=== PATIENT | female | born 1990 | race African-American/Black ===

== ENCOUNTER 2017-02-03 22:22 | Emergency (ER) | payer MEDICAID ==
[~2017-02-03] VITALS: Ht 167.6 cm; Wt 55.9 kg
[2017-02-03 22:24] VITALS: BP 108/70
[2017-02-03 23:52] LABS: HCG UR OBC PASS
== END 2017-02-04 00:29 | disposition home or self-care (01) ==
LOC: ED 23:59
DX: N76.0 Acute vaginitis (principal); H00.011 Hordeolum externum right upper eyelid
CPT/HCPCS: 81003; 81025; 87210; 87491; 87591; 87808; 99284

== ENCOUNTER 2018-05-26 01:57 | Emergency (ER) | payer MEDICAID ==
[~2018-05-26] VITALS: Ht 167.6 cm; Wt 60.0 kg
[2018-05-26 02:16] LABS: MICROSCOPIC NOT IND
[2018-05-26] MEDS ORDERED: PREN1COM3 PO (02:25)
[2018-05-26] MEDS ORDERED: CYPR4TAB PO (02:25)
[2018-05-26 02:34] LABS: AMPHETAMINE SCREEN, URINE Negative (Negative); BARBITURATE SCREEN, URINE Negative (Negative); BENZODIAZEPINE SCREEN, URINE Negative (Negative); CANNABINOID SCREEN, URINE Negative (Negative); COCAINE SCREEN, URINE Negative (Negative); METHADONE SCREEN, URINE Negative (Negative); OPIATE SCREEN, URINE Negative (Negative)
[2018-05-26 02:42] LABS: MEAN CORPUSCULAR HEMOGLOBIN 30.9 pg (27.0-34.8); MEAN CORPUSCULAR HGB CONC 33.7 g/dL (32.4-35.8); MEAN CORPUSCULAR VOLUME 91.6 fL (80-100); MEAN PLATELET VOLUME 8.8 fL (7.4-10.4); PLATELET COUNT 248 x10^3/uL (130-400); RED BLOOD COUNT 4.01 x10^6/uL (3.82-5.3); RED CELL DISTRIBUTION WIDTH 12.9 % (9.6-15.2)
[2018-05-26 02:46] LABS: ALBUMIN 3.5 g/dL (3.4-5.0); ANION GAP 5 mmol/L (5-15); CALCIUM 8.6 mg/dL (8.5-10.1); CHLORIDE 111 mmol/L (98-107); CREATININE 0.86 mg/dL (0.55-1.02)
[2018-05-26 03:02] LABS: ACETAMINOPHEN < 2 mcg/mL (10-30); SALICYLATE LEVEL < 1.7 mg/dL (2.8-20.0)
[2018-05-26 03:13] LABS: BASOPHILS # (AUTO) 0.02 x10^3/uL (0-0.1); BASOPHILS % (AUTO) 1 % (0-1); EOSINOPHILS # (AUTO) 0.01 x10^3/uL (0-0.4); EOSINOPHILS % (AUTO) 0 % (1-7); LYMPHOCYTES # (AUTO) 1.37 x10^3/uL (1-3.4); LYMPHOCYTES % (AUTO) 35 % (22-44); MD SCAN; MONOCYTES # (AUTO) 0.49 x10^3/uL (0.2-0.8); MONOCYTES % (AUTO) 12 % (2-9); NEUTROPHILS # (AUTO) 2.07 x10^3/uL (1.8-6.8); NEUTROPHILS % (AUTO) 52 % (42-75)
[2018-05-26 05:27] VITALS: BP 114/54
== END 2018-05-26 05:48 | disposition home or self-care (01) ==
LOC: ED 03:21
DX: F41.1 Generalized anxiety disorder (principal); F43.22 Adjustment disorder with anxiety; Z79.899 Other long term (current) drug therapy
CPT/HCPCS: 36415; 80048; 80307; 80329; 81003; 82040; 84703; 85025; 99284; G0480